=== PATIENT | female | born 1970 | race Caucasian/White ===

== ENCOUNTER 2017-09-16 12:09 | Observation (INO) ==
[2017-09-16 12:41] LABS: Basophils % 0.3 %; Eosinophils % 0.1 %; Hematocrit 27.6 % (35.3-44.9); Immature Granulocytes % 0.4 % (0-4); Lymphocytes # 1.4 K/mcL (0.6-4.6); Lymphocytes % 14.6 %; Mean Corpuscular HGB Conc 32.2 g/dL (31.6-35.5); Mean Corpuscular Hemoglobin 26.9 pg (28.0-33.3); Mean Corpuscular Volume 83.4 fL (83.0-100.0); Mean Platelet Volume 10.9 fL (9.4-12.4); Monocytes # 0.4 K/mcL (0.0-1.3); Monocytes % 4.4 %; Neutrophils # 7.5 K/mcL (1.6-8.9); Platelet Count 320 K/mcL (140-400); Red Blood Count 3.31 M/mcL (3.82-4.97); Red Cell Distribution Width 17.3 % (11.5-14.5); Segmented Neutrophils % 80.2 %
[2017-09-16 12:52] LABS: Hemoglobin 8.9 g/dL (11.5-15.4)
[2017-09-16 12:54] LABS: INR 1.1; Prothrombin Time 11.9 Seconds (9.4-12.1)
[2017-09-16 12:57] LABS: Activated Partial Thrombo Time 25.2 Seconds (26.0-36.0)
[2017-09-16 13:02] LABS: BUN/Creatinine Ratio 9 (6-26); Blood Urea Nitrogen 8 mg/dL (6-20); Calcium 8.7 mg/dL (8.6-10.3); Carbon Dioxide 23 mEq/L (23-29); Chloride 107 mEq/L (98-107); Glucose 113 mg/dL (70-105); Osmolality,Calculated 279 (280-300); Potassium 4.1 mEq/L (3.5-5.1); Sodium 135 mEq/L (136-145); Troponin I < 0.03 ng/mL (< 0.04); eGFR For African Americans > 60 (> 60); eGFR For Non-African Americans > 60 (> 60)
[2017-09-16] MEDS ORDERED: 0.9 % Sodium Chloride 1,000 ML IVC ONE (13:16)
[2017-09-16] MEDS ORDERED: Isovue-370 500 ML INFUS..BTL IV ONE (13:16)
--- NOTE | 2017-09-16 13:29 | Emergency Department Note ---
Disposition Clinical Impression: Anemia Qualifiers: Anemia type: unspecified type Qualified Code(s): D64.9 - Anemia, unspecified Chest pain Qualifiers: Chest pain type: unspecified Qualified Code(s): R07.9 - Chest pain, unspecified Disposition: Admitted As Inpatient Referrals: Renzo Correa DO [Primary Care Provider] - General Adult HPI - General Chief complaint: ED Chest Pain Stated complaint: CP SOB Time Seen by Provider: 09/16/17 12:11 Source: patient, family Limitations: no limitations - History of Present Illness Pain Scale: 2 - Related Data Home Medications Medication Instructions Recorded Confirmed No Known Home Drugs 09/09/16 09/09/16 Allergies Allergy/AdvReac Type Severity Reaction Status Date / Time Penicillins [PCN] Allergy Rash Verified 09/09/16 04:53 Past Medical History - Past Medical History Medical history: Reports: other Surgical history: Reports: appendectomy Psychiatric history: Reports: anxiety, depression 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 - Social History Smoking Status: Never smoker Smokeless Tobacco Status: No Alcohol use: Reports: none Drug use: Reports: none Physical Exam - General Limitations: no limitations General appearance: alert, in distress Course Vital Signs Temperature 97.7 F 09/16/17 12:12 Pulse Rate 112 09/16/17 12:12 Respiratory Rate 18 09/16/17 12:12 Blood Pressure 86/60 09/16/17 12:12 O2 Sat by Pulse Oximetry 100 09/16/17 12:12 Temperature 97.7 F 09/16/17 12:12 Pulse Rate 112 09/16/17 12:12 Respiratory Rate 18 09/16/17 12:12 Blood Pressure 106/67 09/16/17 12:26 O2 Sat by Pulse Oximetry 100 09/16/17 12:26 Oxygen Delivery Oxygen Delivery Room Air Medical Decision Making - Lab Data Result diagrams: 09/16/17 12:32 09/16/17 12:32 Lab Results 09/16/17 09/16/17 09/16/17 Range/Units 12:32 12:32 12:32 WBC 9.3 (4.3-11.1) K/mcL RBC 3.31 L (3.82-4.97) M/mcL Hgb 8.9 L D (11.5-15.4) g/dL Hct 27.6 L (35.3-44.9) % MCV 83.4 (83.0-100.0) fL MCH 26.9 L (28.0-33.3) pg MCHC 32.2 (31.6-35.5) g/dL RDW 17.3 H (11.5-14.5) % Plt Count 320 (140-400) K/mcL MPV 10.9 (9.4-12.4) fL Immature Gran % 0.4 (0-4) % Seg Neutrophils % 80.2 % Lymphocytes % 14.6 % Monocytes % 4.4 % Eosinophils % 0.1 % Basophils % 0.3 % Neutrophils # 7.5 (1.6-8.9) K/mcL Lymphocytes # 1.4 (0.6-4.6) K/mcL Monocytes # 0.4 (0.0-1.3) K/mcL Eosinophils # 0.0 (0.0-0.6) K/mcL Basophils # 0.0 (0.0-0.2) K/mcL PT 11.9 (9.4-12.1) Seconds INR 1.1 APTT 25.2 L (26.0-36.0) Seconds Sodium 135 L (136-145) mEq/L Potassium 4.1 (3.5-5.1) mEq/L Chloride 107 (98-107) mEq/L Carbon Dioxide 23 (23-29) mEq/L BUN 8 (6-20) mg/dL Creatinine 0.88 (0.60-1.20) mg/dL Est GFR ( Amer) > 60 (> 60) Est GFR (Non-Af Amer) > 60 (> 60) BUN/Creatinine Ratio 9 (6-26) Glucose 113 H (70-105) mg/dL Calculated Osmolality 279 L (280-300) Calcium 8.7 (8.6-10.3) mg/dL Troponin I < 0.03 (< 0.04) ng/mL Attestation Statement - Attestation Attestation: I examined this patient and my medical decision-making was reviewed with the Resident Physician. I agree with the documented findings, disposition and treatment plan as described except to the extent set forth below. 47 year old polina presents to the eD with complaints of chest pain and shortness of breath. She has a history of anemia and is currently on her period. Everette appears pale and thinks that likely she is anemic again although this time she is experiencing chestp ain that is midsternal and radiating to her back. She is tachycardiac and hypotensive on arrival . She has dropped her hgb from 12 to 8 in the past 4 days. We will continue with cardiopulmonary workup and efra transfuse at least one unit for transfusion and CTA chest to rule out PE or other cardiopulmonary pathologies. We will admit to medicine
--- NOTE | 2017-09-16 14:30 | Emergency Department Note ---
Disposition Clinical Impression: Vaginal bleeding Anemia Qualifiers: Anemia type: unspecified type Qualified Code(s): D64.9 - Anemia, unspecified Chest pain Qualifiers: Chest pain type: unspecified Qualified Code(s): R07.9 - Chest pain, unspecified Disposition: Admitted As Inpatient Condition: Fair Time of Disposition: 19:04 Chest Pain HPI - General Stated Complaint: CP SOB Time Seen by Provider: 09/16/17 12:11 Source: patient, family Limitations: no limitations Vital Signs Reviewed: Yes Nursing Notes Reviewed: Yes - History of Present Illness HPI Narrative: Patient is a 47-year-old female who presents to [facility] ED with a chief complaint of chest pain and difficulty breathing. States her symptoms started several days ago and is worse with exertion. Denies any nausea , vomiting, fever or chills. No problems with abdominal pain, problems with urination or bowel movements. States she has also had issues with anemia intermittently. States she has had a blood transfusion over the last several years. Pt complaint: chest pain Onset (ago): day(s) (1) Duration: intermittent Onset: during exertion Pain Location: substernal Severity: mild Severity scale (1-10): 2 Quality: aching Pain Radiation: none Improves with: nothing Worsens with: exertion Associated symptoms: Reports: dyspnea. Denies: nausea, vomiting, fever, cough Treatments prior to arrival chest pain: none - Related Data Home Medications Medication Instructions Recorded Confirmed No Known Home Drugs 09/09/16 09/16/17 Allergies Allergy/AdvReac Type Severity Reaction Status Date / Time Penicillins [PCN] Allergy Rash Verified 09/09/16 04:53 All systems ED: reviewed and negative except as stated. 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 - Social History Smoking Status: Never smoker Alcohol use: Reports: none Drug use: Reports: none Physical Exam - General Limitations: no limitations General appearance: alert, in distress - Head Head exam: atraumatic, normocephalic, normal inspection - Eye Eye exam: Present: normal appearance, PERRL, EOMI - ENT ENT exam: normal exam, normal oropharynx, mucous membranes moist - Neck Neck exam: Present: normal inspection, full ROM, trachea midline - Chest Chest inspection: Present: normal inspection, symmetric chest wall rise - Respiratory Respiratory exam: Present: normal lung sounds bilaterally - Cardiovascular Cardiovascular exam: Present: normal rhythm, tachycardia - Abdominal Exam Abdominal exam: Present: soft, Non-Tender. Absent: tenderness, distention, guarding, rebound, rigidity - Rectal Exam Rn Medical Inpatient Services present during exam: Yes Rectal exam: Present: normal rectal tone, heme (+) stool. Absent: hemorrhoids - Female Speculum Exam: Present: vaginal bleeding - Extremities Exam Extremities exam: Present: normal inspection, full ROM. Absent: tenderness, pedal edema - Back Exam Back exam: Present: normal inspection, full ROM. Absent: tenderness - Neurological Exam Neurological exam: Present: alert, oriented X3 - Psychiatric Psychiatric exam: Present: normal affect, normal mood - Skin Skin exam: Present: warm, dry, intact, pallor Course Course Narrative: Patient seen and examined. Patient very pale and has a history of anemia. Also has chest pain with exertional dyspnea. Cardiopulmonary workup initiated. Liter fluid bolus ordered. Patient is borderline hypotensive, however she does state her blood pressure runs low. Patient states her anemia has been worked up in the past and they have not found a source. Her primary care physician has been scheduling her for iron infusions. - Reevaluation(s) Reevaluation #1: Labwork showed hemoglobin of 8.9 which is low were then 4 days ago at 12.9. I discussed with the hospitalist Dr. Biggs who would like patient to have a Hemoccult as well as a CT of the abdomen and pelvis. This was performed and the Hemoccult was trace positive. 40mg Protonix given. CT did show uterine fibroids. I then discussed these results with the hospitalist Dr. Savage who stated he would like HEART SURGEON to either except the patient or consult on the patient. I discussed with HEART SURGEON group marketing vp Amy Hernandez and Dr. Baltazar who states they will see the patient in consult. Patient has been accepted for admission by the hospitalist. Time: 19:02 Vital Signs Temperature 97.7 F 09/16/17 12:12 Pulse Rate 112 09/16/17 12:12 Respiratory Rate 18 09/16/17 12:12 Blood Pressure 86/60 09/16/17 12:12 O2 Sat by Pulse Oximetry 100 09/16/17 12:12 Temperature 97.7 F 09/16/17 12:12 Pulse Rate 98 09/16/17 17:22 Respiratory Rate 18 09/16/17 17:22 Blood Pressure 101/62 09/16/17 17:22 O2 Sat by Pulse Oximetry 100 09/16/17 17:22 Oxygen Delivery Oxygen Delivery Room Air Chest Pain - Medical Records Medical records reviewed: Yes I reviewed the patient's medical records. - Lab Data Lab results reviewed: Yes I reviewed the patient's lab results. Result diagrams: 09/16/17 12:32 09/16/17 12:32 Lab Results 09/16/17 09/16/17 09/16/17 Range/Units 12:32 12:32 12:32 WBC 9.3 (4.3-11.1) K/mcL RBC 3.31 L (3.82-4.97) M/mcL Hgb 8.9 L D (11.5-15.4) g/dL Hct 27.6 L (35.3-44.9) % MCV 83.4 (83.0-100.0) fL MCH 26.9 L (28.0-33.3) pg MCHC 32.2 (31.6-35.5) g/dL RDW 17.3 H (11.5-14.5) % Plt Count 320 (140-400) K/mcL MPV 10.9 (9.4-12.4) fL Immature Gran % 0.4 (0-4) % Seg Neutrophils % 80.2 % Lymphocytes % 14.6 % Monocytes % 4.4 % Eosinophils % 0.1 % Basophils % 0.3 % Neutrophils # 7.5 (1.6-8.9) K/mcL Lymphocytes # 1.4 (0.6-4.6) K/mcL Monocytes # 0.4 (0.0-1.3) K/mcL Eosinophils # 0.0 (0.0-0.6) K/mcL Basophils # 0.0 (0.0-0.2) K/mcL PT 11.9 (9.4-12.1) Seconds INR 1.1 APTT 25.2 L (26.0-36.0) Seconds Sodium 135 L (136-145) mEq/L Potassium 4.1 (3.5-5.1) mEq/L Chloride 107 (98-107) mEq/L Carbon Dioxide 23 (23-29) mEq/L BUN 8 (6-20) mg/dL Creatinine 0.88 (0.60-1.20) mg/dL Est GFR ( Amer) > 60 (> 60) Est GFR (Non-Af Amer) > 60 (> 60) BUN/Creatinine Ratio 9 (6-26) Glucose 113 H (70-105) mg/dL Calculated Osmolality 279 L (280-300) Calcium 8.7 (8.6-10.3) mg/dL Troponin I < 0.03 (< 0.04) ng/mL - Radiology Data Radiology results reviewed: Yes I reviewed the patient's radiology results. Chest X-Ray 09/16/17 12:14 IMPRESSION: No acute cardiopulmonary disease. D/ / Renzo Araujo MD / Renzo Araujo MD Interpreting Provider: Renzo Araujo MD Chest CTA 09/16/17 13:16 IMPRESSION: No evidence of pulmonary embolism or acute pulmonary abnormality. D/ / 09/16/2017 13:55:25 Sami Piedra MD / fabio Interpreting Provider: Sami Piedra MD Abdomen/Pelvis CT 09/16/17 14:39 IMPRESSION: 1. No acute process in the abdomen or pelvis. 2. Likely 4.1 cm fibroid along the lower uterine segment. This could be further evaluated with pelvic ultrasound. D/ / 09/16/2017 15:40:50 Juan Pablo Johnson MD / fabio Interpreting Provider: Juan Pablo Johnson MD - EKG Data EKG attestation: Yes I reviewed and interpreted this EKG. EKG results narrative: EKG done at 1214 shows sinus tachycardia with a rate of [address] elevation or depression. Normal axis. Heart Score - Score History: Moderately Suspicious EKG: Normal Age: 45-65 Risk Factors: 1-2 risk factors Troponin: Less than normal limit HEART Score Total: 3
[2017-09-16] MEDS ORDERED: Pantoprazole 40 MG VIAL IVP ONE (15:34)
[2017-09-16] MEDS ORDERED: Acetaminophen 325 MG TABLET PO PRN (19:46)
[2017-09-16] MEDS ORDERED: Naloxone 0.4 MG/ML INJ IVP PRN (19:46)
--- NOTE | 2017-09-16 20:01 | Internal Med History&Physical ---
Date of Encounter: 09/16/17 Time of Encounter: 19:00 Internal Medicine - H&P: HPI Chief complaint: Syncope Admitted From: Home Plans for Post Hospital Care: Home History of present illness: Ms. Davila is a 47 year old female present to ER for shortness of breath, palpitation, and syncope 2. Past medical history is significant for iron deficiency anemia need frequent blood transfusion. Patient said since yesterday she feels shortness of breath, heart racing, passed out twice. Patient also complaining of shortness of breath with intermittent chest pain. The pain located on mid chest, no radiation. Patient has normal hemoglobin on Monday, when checked in the PCP office. However, today her hemoglobin dropped to 8.9. Patient said she has heavy peroid and almost cannot get out of commode yesterday. Patient had frequent anemia, she was transfused 9 times in last 8 years. Patient had colonoscopy around 8 years ago, which is unremarkable. Patient denies fever or nausea. Patient said her peroid is sometimes light sometimes heavy. Patient denies any injury during syncope. Past Med Surg Social Fam HX - Past Medical History Medical history: other Psychiatric history: anxiety, depression - Past Surgical History Surgical History: appendectomy - Social History Smoking Status: Never smoker Smokeless Tobacco Status: No Alcohol use: none Drug use: none - Family History Mother Hx Family Respiratory Disorders: Yes (COPD) Father Hx Family Cardiac Disorders: Yes (heart disease) Internal Medicine - H&P: Meds RX: No Known Home Drugs 09/09/16 [History] 3 Allergy/AdvReac Type Severity Reaction Status Date / Time Penicillins [PCN] Allergy Rash Verified 09/09/16 04:53 All Systems PM: A 10-system review of systems was performed and is negative for pertinent findings except as documented above in the HPI. - Constitutional Vitals: Temp Pulse Resp BP Pulse Ox 97.7 F 98 18 101/62 100 09/16/17 12:12 09/16/17 17:22 09/16/17 17:22 09/16/17 17:22 09/16/17 17:22 General appearance: Present: A&O X 3, no acute distress, answers questions appropriately - Head Head exam: Present: atraumatic, normocephalic - Eye Eye exam: Present: PERRL, conjuntiva pink, sclera anicteric Pupils: Present: PERRL - Neck Neck exam general surgery: Present: supple, trachea midline. Absent: lymphadenopathy - Respiratory Respiratory exam: Present: CTAB. Absent: accessory muscle use, rales, rhonchi, wheezes - Cardiovascular Cardiovascular exam: Present: RRR, +S1, +S2, tachycardia. Absent: diastolic murmur, gallop, rubs, systolic murmur - GI/Abdominal GI/Abdominal exam: Present: normal bowel sounds, soft, no peritoneal signs. Absent: distended, tenderness - Extremities Exam Extremities exam: Present: warm, radial pulses palpable and symmetrical. Absent : calf tenderness, cyanotic, pedal edema - Neurological Exam Neurological exam: Present: CN II-XII intact, oriented X3, no focal deficits. Absent: pronater drift, facial droop, speech deficit - Skin Skin exam: Present: dry, intact Internal Med - H&P Results - Labs CBC & Chem 7: 09/16/17 12:32 09/16/17 12:32 - EKG Data -: EKG Interpreted by Myself EKG shows normal: sinus rhythm Rate: tachycardia - Assessment and plan (1) Syncope Current Visit: Yes Status: Acute Assessment and plan: Patient had syncope 2 yesterday. Most likely due to heavy peroid caused hypovolemia. However, will also rule out cardio/neuro etiology. - Continuous cardiac monitoring to rule out arrhythmia - Echo and duplex carotid - Orthostatic vitals - Closely monitor vitals and H&H Qualifiers: Syncope type: vasovagal syncope Qualified Code(s): R55 - Syncope and collapse (2) DVT prophylaxis Current Visit: Yes Status: Acute Assessment and plan: EPCD. (3) Chest pain Current Visit: Yes Status: Acute Assessment and plan: Most likely demand ischemia due to acute blood loss. - Continue cardiac monitoring - Track 3 sets of troponin - Echocardiogram Qualifiers: Chest pain type: precordial pain Qualified Code(s): R07.2 - Precordial pain (4) Vaginal bleeding Current Visit: Yes Status: Acute Assessment and plan: Patient has heavy peroid, which causes acute blood loss anemia. CT abdomen shows fibroid. - US pelvis - ANIMAL CARE ASSISTANT consult (5) Anemia Current Visit: Yes Status: Chronic Assessment and plan: Patient has a chronic anemia need frequent blood transfusion. Patient is not on iron pill because of GI intolerance. - Most likely due to vaginal bleeding. - Closely monitor hemoglobin and vitals - ANIMAL CARE ASSISTANT consult Qualifiers: Anemia type: iron deficiency Iron deficiency anemia type: chronic blood loss Qualified Code(s): D50.0 - Iron deficiency anemia secondary to blood loss (chronic) - Time Spent With Patient Total time spent is greater than 50% in coordination of care (as documented) at patient's floor/unit and/or counseling patient: 40 minutes Greater than 35 minutes
[2017-09-17 04:39] LABS: Basophils % 0.4 %; Eosinophils % 0.6 %; Immature Granulocytes % 0.4 % (0-4); Lymphocytes # 1.7 K/mcL (0.6-4.6); Lymphocytes % 23.6 %; Mean Corpuscular HGB Conc 31.6 g/dL (31.6-35.5); Mean Corpuscular Hemoglobin 26.8 pg (28.0-33.3); Mean Corpuscular Volume 84.8 fL (83.0-100.0); Mean Platelet Volume 11.3 fL (9.4-12.4); Monocytes # 0.4 K/mcL (0.0-1.3); Monocytes % 5.1 %; Neutrophils # 4.9 K/mcL (1.6-8.9); Nucleated Red Blood Cells 0.3 /100 WBC (0); Platelet Count 242 K/mcL (140-400); Red Blood Count 2.24 M/mcL (3.82-4.97); Red Cell Distribution Width 17.7 % (11.5-14.5); Segmented Neutrophils % 69.9 %
[2017-09-17 05:02] LABS: BUN/Creatinine Ratio 10 (6-26); Blood Urea Nitrogen 8 mg/dL (6-20); Calcium 7.8 mg/dL (8.6-10.3); Carbon Dioxide 25 mEq/L (23-29); Chloride 111 mEq/L (98-107); Glucose 102 mg/dL (70-105); Magnesium 1.8 mg/dL (1.6-2.6); Osmolality,Calculated 285 (280-300); Potassium 4.2 mEq/L (3.5-5.1); Sodium 138 mEq/L (136-145); eGFR For African Americans > 60 (> 60); eGFR For Non-African Americans > 60 (> 60)
--- NOTE | 2017-09-17 06:45 | OB/GYN Consult Note ---
Date of Encounter: 09/17/17 Time of Encounter: 06:56 Assessment and Plan (1) Vaginal bleeding Current Visit: Yes Status: Acute Going by the CT reports, there is a 4.1cm fibroid in the lower uterine segment. It depends on the location of this fibroid i.e whether it is submucosal to say that the bleeding is caused by the fibroid. I ordered a TVUS but it has not been done. That will give us the exact location as well as the endometrial lining. In the meantime, I will start her on Medroxyrogesterone 20mg TID x 7days. I've asked her and the credit front office developer to make an appt to see me this Monday in the office. They have not transfused her because of the extra testing for antibodies on the blood samples. Continue management per Medicine. No surgical public weigher interventions indicated at this time. History of Present Illness Reason for consult: menorrhagia History of present illness: 47 y/o presents to the hospital with menorrhagia and anemia. She presented initially to the ED with chest pain and SOB. A CT was done which showed a 4cm lower uterine fibroid. The patient reports her periods started this past and says that her periods last 5-6 days. When she arrived the ED, she was changing 1 pad every hr, by the time she got to the floor, it had subsided to 1 pad every 3 hrs. She has had menorrhagia for years and has been receiving multiple transfusions. She has not seen a Manager Credit Collections in 8 yrs. She says that she had 9 transfusions last year and has now developed antibodies. For months, she has been having IV iron transfusions for anemia with her last one 4 weeks ago. She presented 4 days ago to the office for blood work and her Hgb was 12. In the ED yesterday, it dropped to 8, now it is down to 6. Past Med Surg Social Fam HX - Past Medical History Medical history: no medical history Psychiatric history: anxiety, depression - Past Surgical History Surgical History: appendectomy - Social History Smoking Status: Never smoker Smokeless Tobacco Status: No Alcohol use: none Drug use: none - Family History Mother Hx Family Respiratory Disorders: Yes (COPD) Father Hx Family Cardiac Disorders: Yes (heart disease) Medications and Allergies No Known Home Drugs 09/09/16 [History] 3 Allergy/AdvReac Type Severity Reaction Status Date / Time Penicillins [PCN] Allergy Rash Verified 09/09/16 04:53 Review of Systems All Systems: reviewed and no additional remarkable complaints except as stated Exam - Vital Signs Vital signs: Initial Vital Signs Temp Pulse Resp BP Pulse Ox 97.7 F 112 18 86/60 100 09/16/17 12:12 09/16/17 12:12 09/16/17 12:12 09/16/17 12:12 09/16/17 12:12 - Constitutional Constitutional: well developed - HEENT HEENT: PERRL - Neck Neck exam: normal inspection - Lungs Respiratory exam: CTAB - Cardiovascular Cardiovascular exam: RRR - Abdomen Abdomen: Present: bowel sounds normal - Vagina Vagina: Present: normal moisture (SSE showed pooling of blood in the vault, pad with scant blood, blood extracted and no active bleeding noted, cervix closed. ) Results Result Diagrams: 09/17/17 04:20 09/17/17 04:20 Abnormal lab results RBC 2.24 M/mcL (3.82-4.97) L 09/17/17 04:20 Hgb 6.0 g/dL (11.5-15.4) L* D 09/17/17 04:20 Hct 19.0 % (35.3-44.9) L 09/17/17 04:20 MCH 26.8 pg (28.0-33.3) L 09/17/17 04:20 RDW 17.7 % (11.5-14.5) H 09/17/17 04:20 Nucleated RBCs/100 WBC 0.3 /100 WBC (0) H 09/17/17 04:20 APTT 25.2 Seconds (26.0-36.0) L 09/16/17 12:32 Chloride 111 mEq/L (98-107) H 09/17/17 04:20 Calcium 7.8 mg/dL (8.6-10.3) L 09/17/17 04:20 All other labs normal. Consult Discharge Plan - Plan Referrals: Renzo Correa DO [Primary Care Provider] -
--- NOTE | 2017-09-17 08:37 | Internal Med Progress Note ---
Date of Encounter: 09/17/17 Time of Encounter: 08:34 - Assessment and plan (1) Vaginal bleeding Current Visit: Yes Status: Acute Assessment and plan: Patient has heavy peroids from likely uterine fibroids. HORSE WRANGLER has been consulted and a vaginal ultrasound has been ordered. She was started on Provera as well. (2) Anemia Current Visit: Yes Status: Chronic Assessment and plan: acute blood loss anemia from vaginal bleed. Patient has a chronic anemia needing frequent blood transfusion. Patient is not on iron pill because of GI intolerance. We will transfuse 2 units. Follow-up posttransfusion CBC. Unfortunately she has developed Abs now and we are ordering the blood from the [facility]. Will bolus a liter NS now. Start NS at 125 cc/hr after that Qualifiers: Anemia type: iron deficiency Iron deficiency anemia type: chronic blood loss Qualified Code(s): D50.0 - Iron deficiency anemia secondary to blood loss (chronic) (3) Chest pain Current Visit: Yes Status: Acute Assessment and plan: Echo pending. Cardiac enzymes not elevated 3. No EKG changes. Qualifiers: Chest pain type: precordial pain Qualified Code(s): R07.2 - Precordial pain (4) Syncope Current Visit: Yes Status: Acute Assessment and plan: Patient had syncope 2 yesterday. This is likely from symptomatic anemia. Admitting hospitalist ordered echocardiogram as well as carotid duplex and orthostatics to rule out other etiology which I agree with. We will follow-up on those. Patient is not orthostatic. Qualifiers: Syncope type: vasovagal syncope Qualified Code(s): R55 - Syncope and collapse (5) DVT prophylaxis Current Visit: Yes Status: Acute Assessment and plan: EPCD. - Time Spent With Patient Total time spent is greater than 50% in coordination of care (as documented) at patient's floor/unit and/or counseling patient: - Subjective Interval history: Patient was seen and examined. Afebrile Hemoglobin is 6.0 and patient is skin transfused. Hemoglobin was 8.9 on admission. Hemoglobin was 12.6 back on . She is having heavy periods with imaging showing uterine fibroid being evaluated by HORSE WRANGLER. Has some symptomatic anemia with shortness of breath, tachycardia, and syncope. - Constitutional Vitals: Temp Pulse Resp BP Pulse Ox 97.5 F L 92 17 97/65 100 09/17/17 07:20 09/17/17 07:20 09/17/17 07:20 09/17/17 07:20 09/17/17 07:20 General appearance: Present: A&O X 3, no acute distress, answers questions appropriately Exam: GEN: NAD CVS: RRR. S1, S2, No m/r/g RESP: CTAB ABD: Soft, NT, ND, +BS EXT: No edema. 2+ DP. No rashes NEURO: Nonfocal Internal Medicine: Result - Labs CBC & Chem 7: 09/17/17 04:20 09/17/17 04:20 Labs: Short CBC 09/17/17 Range/Units 04:20 WBC 7.0 (4.3-11.1) K/mcL Hgb 6.0 L* D (11.5-15.4) g/dL Hct 19.0 L (35.3-44.9) % Plt Count 242 (140-400) K/mcL Neutrophils # 4.9 (1.6-8.9) K/mcL BMP 09/17/17 04:20 Sodium 138 Potassium 4.2 Chloride 111 H Carbon Dioxide 25 BUN 8 Creatinine 0.78 Glucose 102 Calcium 7.8 L Cardiac Enzymes 09/16/17 09/17/17 Range/Units 22:10 04:20 Troponin I < 0.03 < 0.03 (< 0.04) ng/mL - ABG Interpretation ABG results: PT/INR, D-dimer PT 11.9 Seconds (9.4-12.1) 09/16/17 12:32 Consult Discharge Plan - Plan Referrals: Crystal Baltazar MD [Partnered Physician] - (Please schedule a follow up for Tuesday 09/19. If patient is still in the hospital please schedule first available within a week at discharge for chronic vaginal bleeding) Renzo Correa DO [Primary Care Provider] -
[2017-09-17] MEDS ORDERED: 0.9 % Sodium Chloride 1,000 ML IVC ONE ×2 (08:49→10:56)
[2017-09-17] MEDS ORDERED: 0.9 % Sodium Chloride 2,000 ML ONE (08:54)
[2017-09-17] MEDS ORDERED: 0.9 % Sodium Chloride 250 ML ONE ×3 (10:23→19:59)
[2017-09-17] MEDS: 0.9 % Sodium Chloride 1,000 ML IVC SCH ×2 (10:36→17:26)
[2017-09-17] MEDS ORDERED: 0.9 % Sodium Chloride 500 ML ONE (14:20)
[2017-09-17 16:48] LABS: Hematocrit 22.9 % (35.3-44.9); Hemoglobin 7.5 g/dL (11.5-15.4)
[2017-09-17] MEDS ORDERED: Iron Sucrose Complex 400 MG in 0.9 % Sodium Chloride 250 ML IVPB ONE (18:33)
[2017-09-17] MEDS ORDERED: Furosemide 20 MG/2 ML VIAL IVP ONE (19:30)
[2017-09-18 01:00] LABS: Basophils % 0.5 %; Eosinophils # 0.1 K/mcL (0.0-0.6); Eosinophils % 0.9 %; Hematocrit 31.4 % (35.3-44.9); Immature Granulocytes % 0.3 % (0-4); Lymphocytes # 1.9 K/mcL (0.6-4.6); Lymphocytes % 23.6 %; Mean Corpuscular HGB Conc 33.8 g/dL (31.6-35.5); Mean Corpuscular Hemoglobin 29.4 pg (28.0-33.3); Mean Platelet Volume 11.1 fL (9.4-12.4); Monocytes # 0.5 K/mcL (0.0-1.3); Monocytes % 6.2 %; Neutrophils # 5.5 K/mcL (1.6-8.9); Platelet Count 171 K/mcL (140-400); Red Blood Count 3.61 M/mcL (3.82-4.97); Red Cell Distribution Width 15.4 % (11.5-14.5); Segmented Neutrophils % 68.5 %
[2017-09-18 01:02] LABS: Hemoglobin 10.6 g/dL (11.5-15.4)
[2017-09-18 01:09] LABS: BUN/Creatinine Ratio 8 (6-26); Blood Urea Nitrogen 6 mg/dL (6-20); Calcium 7.3 mg/dL (8.6-10.3); Carbon Dioxide 22 mEq/L (23-29); Chloride 114 mEq/L (98-107); Glucose 101 mg/dL (70-105); Magnesium 1.7 mg/dL (1.6-2.6); Osmolality,Calculated 288 (280-300); Potassium 3.7 mEq/L (3.5-5.1); Sodium 140 mEq/L (136-145); eGFR For African Americans > 60 (> 60); eGFR For Non-African Americans > 60 (> 60)
[2017-09-18] MEDS: 0.9 % Sodium Chloride 1,000 ML IVC SCH ×2 (04:11→09:57)
[2017-09-18] MEDS ORDERED: Magnesium Oxide 400 MG TABLET PO ONE (09:37)
[2017-09-18] MEDS ORDERED: Iron Sucrose Complex 400 MG in 0.9 % Sodium Chloride 250 ML IVPB ONE (09:40)
--- NOTE | 2017-09-18 09:43 | Internal Med Progress Note ---
Date of Encounter: 09/18/17 Time of Encounter: 09:40 - Assessment and plan (1) Vaginal bleeding Current Visit: Yes Status: Acute Assessment and plan: Patient has heavy peroids from likely uterine fibroids. FIELD INSTALLER has been consulted. vaginal US noted. She was started on Provera as well. (2) Anemia Current Visit: Yes Status: Chronic Assessment and plan: This is acute blood loss anemia from vaginal bleed. Patient has a chronic anemia needing frequent blood transfusion. Patient is not on iron pill because of GI intolerance. Given IV iron yesterday. Will dose Venofer again today. s/p 4 units PRBCs. No need to transfuse today. stop IVF Qualifiers: Anemia type: iron deficiency Iron deficiency anemia type: chronic blood loss Qualified Code(s): D50.0 - Iron deficiency anemia secondary to blood loss (chronic) (3) Chest pain Current Visit: Yes Status: Acute Assessment and plan: Echo pending. Cardiac enzymes not elevated 3. No EKG changes. Qualifiers: Chest pain type: precordial pain Qualified Code(s): R07.2 - Precordial pain (4) Syncope Current Visit: Yes Status: Acute Assessment and plan: Patient had syncope 2. This is likely from symptomatic anemia. Admitting hospitalist ordered echocardiogram as well as carotid duplex and orthostatics to rule out other etiology which I agree with. We will follow-up on those. Patient is not orthostatic. Qualifiers: Syncope type: vasovagal syncope Qualified Code(s): R55 - Syncope and collapse (5) DVT prophylaxis Current Visit: Yes Status: Acute Assessment and plan: EPCD. - Time Spent With Patient Total time spent is greater than 50% in coordination of care (as documented) at patient's floor/unit and/or counseling patient: - Subjective Interval history: Patient was seen and examined. Afebrile. Periods have slowed down. s/p 4 total units PRBCs. H/H stable this morning at 10.6. Hemoglobin was 12.6 back on . She is having heavy periods with imaging showing uterine fibroid being evaluated by FIELD INSTALLER. Has some symptomatic anemia with shortness of breath, tachycardia, and syncope. - Constitutional Vitals: Temp Pulse Resp BP Pulse Ox 98.6 F 82 16 123/83 97 09/18/17 07:28 09/18/17 07:28 09/18/17 07:28 09/18/17 07:28 09/18/17 07:28 General appearance: Present: A&O X 3, no acute distress, answers questions appropriately Exam: GEN: NAD CVS: RRR. S1, S2, No m/r/g RESP: CTAB ABD: Soft, NT, ND, +BS EXT: No edema. 2+ DP. No rashes NEURO: Nonfocal Internal Medicine: Result - Labs CBC & Chem 7: 09/18/17 00:39 09/18/17 00:39 Labs: Short CBC 09/17/17 09/18/17 Range/Units 16:41 00:39 WBC 8.0 (4.3-11.1) K/mcL Hgb 7.5 L D 10.6 L D (11.5-15.4) g/dL Hct 22.9 L 31.4 L (35.3-44.9) % Plt Count 171 (140-400) K/mcL Neutrophils # 5.5 (1.6-8.9) K/mcL BMP 09/18/17 00:39 Sodium 140 Potassium 3.7 Chloride 114 H Carbon Dioxide 22 L BUN 6 Creatinine 0.71 Glucose 101 Calcium 7.3 L - ABG Interpretation ABG results: PT/INR, D-dimer PT 11.9 Seconds (9.4-12.1) 09/16/17 12:32 - Impressions Impressions Pelvis Ultrasound 09/17/17 12:09 IMPRESSION: Multifibroid uterus with dominant fibroid in the uterine body on the left correlating with the focus noted on recent CT exam. This measures maximally 5.1 cm. Suspect a submucosal component to this fibroid. Consideration could be given to further evaluation with MRI as clinically indicated. D/ / 09/17/2017 14:19:12 Chris Hartman MD / cookieyer Interpreting Provider: Chris Hartman MD Consult Discharge Plan - Plan Referrals: Crystal Baltazar MD [Partnered Physician] - (Please schedule a follow up for Tuesday 09/19. If patient is still in the hospital please schedule first available within a week at discharge for chronic vaginal bleeding) Renzo Correa DO [Primary Care Provider] -
[2017-09-18 15:12] LABS: Hematocrit 29.7 % (35.3-44.9); Hemoglobin 9.8 g/dL (11.5-15.4)
[2017-09-19 04:17] VITALS: BP 110/73
[2017-09-19 05:43] LABS: Basophils % 0.5 %; Eosinophils # 0.1 K/mcL (0.0-0.6); Eosinophils % 1.2 %; Hematocrit 30.2 % (35.3-44.9); Hemoglobin 9.9 g/dL (11.5-15.4); Immature Granulocytes % 0.4 % (0-4); Lymphocytes # 1.2 K/mcL (0.6-4.6); Lymphocytes % 16.8 %; Mean Corpuscular HGB Conc 32.8 g/dL (31.6-35.5); Mean Corpuscular Hemoglobin 28.6 pg (28.0-33.3); Mean Corpuscular Volume 87.3 fL (83.0-100.0); Mean Platelet Volume 10.7 fL (9.4-12.4); Monocytes # 0.5 K/mcL (0.0-1.3); Neutrophils # 5.4 K/mcL (1.6-8.9); Nucleated Red Blood Cells 0.4 /100 WBC (0); Platelet Count 176 K/mcL (140-400); Red Blood Count 3.46 M/mcL (3.82-4.97); Red Cell Distribution Width 16.2 % (11.5-14.5); Segmented Neutrophils % 74.1 %
[2017-09-19 06:02] LABS: BUN/Creatinine Ratio 7 (6-26); Blood Urea Nitrogen 5 mg/dL (6-20); Calcium 8.1 mg/dL (8.6-10.3); Carbon Dioxide 25 mEq/L (23-29); Chloride 111 mEq/L (98-107); Glucose 94 mg/dL (70-105); Magnesium 1.8 mg/dL (1.6-2.6); Osmolality,Calculated 289 (280-300); Potassium 3.9 mEq/L (3.5-5.1); Sodium 141 mEq/L (136-145); eGFR For African Americans > 60 (> 60); eGFR For Non-African Americans > 60 (> 60)
[2017-09-19] MEDS ORDERED: Iron Sucrose Complex 400 MG in 0.9 % Sodium Chloride 250 ML IVPB ONE (07:40)
[2017-09-19] MEDS ORDERED: Magnesium Oxide 400 MG TABLET PO ONE (07:41)
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
--- NOTE | 2017-09-22 09:14 | Electrocardiograph Report ---
[place] [id number] Test Date: 2017-09-16 Pat Name: Vidya Davila Department: 102 Room: 2A22 Gender: F Explosive Man: Ritesh : 1970 Requested By: Zuleima Pettit Order Number: [id number] Reading MD: Conner Viera Measurements Intervals [place] Rate: 111 P: 50 DC: 147 QRS: 60 QRSD: 91 T: 55 QT: 312 QTc: 378 Interpretive Statements SINUS TACHYCARDIA NONSPECIFIC ST-T CHANGES Electronically Signed On 09-22-2017 9:12:32 EDT by Conner Viera
== END 2017-09-19 10:45 | disposition home or self-care (01) ==
LOC: 2ANU 12:09 → EMEROO 12:09 → 2ANU 20:02
PROVIDERS: ADMIT Internal Medicine; ATTEND Internal Medicine